=== PATIENT | female | born 1990 | race Caucasian/White ===

== ENCOUNTER 2017-09-04 21:54 | Emergency (ER) | payer OTHER ==
[2017-09-05 00:25] LABS: UA SPECIFIC GRAVITY 1.025 (1.005-1.035); microscopic required? YES; urine erythrocyte 2+ (NEGATIVE)
[2017-09-05 01:15] VITALS: BP 122/85
== END 2017-09-05 01:15 | disposition home or self-care (01) ==
LOC: ED 21:54
PROVIDERS: Emergency Medicine
DX: N39.0 Urinary tract infection, site not specified (principal); N83.201 Unspecified ovarian cyst, right side
CPT/HCPCS: J1885

== ENCOUNTER 2020-10-22 15:20 | Emergency (ER) | payer OTHER ==
[~2020-10-22] VITALS: Ht 149.9 cm; Wt 68.9 kg
[2020-10-22 15:32] VITALS: Ht 149.9 cm; Wt 68.9 kg
[2020-10-22 18:40] VITALS: BP 136/70
== END 2020-10-22 18:40 | disposition home or self-care (01) ==
LOC: ED 15:20
DX: R07.89 Other chest pain (principal); R00.2 Palpitations; R03.0 Elevated blood-pressure reading, without diagnosis of hypertension; N83.209 Unspecified ovarian cyst, unspecified side